=== PATIENT | male | born 1980 | race African-American/Black ===

== ENCOUNTER 2018-08-07 20:11 | Emergency (ER) | payer SELFPAY ==
[2018-08-07] MEDS ORDERED: NS 0.9% 1000 ML*IV.FLUID IV ONE (22:24)
[2018-08-07] MEDS ORDERED: Albuterol/Ipratropium NEB.SOL* Albuterol 2.5 MG/Ipratropium 0.5 MG 3 ML INH ONE (22:25)
[2018-08-07 22:50] LABS: ABS Basophils 0.1 10^3/ul (0-0.2); ABS Eosinophils 0.1 10^3/ul (0-0.6); ABS Lymphocytes 1.4 10^3/ul (1.0-4.8); ABS Monocytes 0.9 10^3/ul (0-0.8); ABS Neutrophils 7.6 10^3/ul (1.5-7.7); ABS Nucleated RBC 0 10^3/ul; Eosinophil % 1.3 %; Hematocrit 42 % (42-52); Hemoglobin 14.7 g/dl (14.0-18.0); Lymphocyte % 13.9 %; Mean Corpuscular HGB Conc 35 g/dl (31-36); Mean Corpuscular Hemoglobin 31 pg (27-31); Mean Corpuscular Volume 91 fL (80-94); Mean Platelet Volume 9.7 fL (7.4-10.4); Nucleated Red Blood Cells % 0; Platelet Count 147 10^3/ul (150-450); Red Blood Count 4.68 10^6/ul (4.00-5.40); Red Cell Distribution Width 13 % (10.5-15)
--- NOTE | 2018-08-07 22:55 | ED ---
HPI Febrile Illness - HPI Summary HPI Summary: 38-year-old male presents with fever for past week. He also admits to cough. He admits to headache, sore throat, weakness, nausea, vomiting, diarrhea, and abdominal pain. He states he is not able to take Tylenol and ibuprofen as causes allergic reaction. He states he feels dehydrated. He has a history of asthma but has not been using his inhaler. No chest pain. He admits occasional shortness of breath. No one else sick. he admits to worsening sinus pressure and congestion. - History of Current Complaint Chief Complaint: EDFluSymptoms Time Seen by Provider: 08/07/18 22:19 Pain Intensity: 10 - Allergy/Home Medications Allergies/Adverse Reactions: Allergies Allergy/AdvReac Type Severity Reaction Status Date / Time acetaminophen Allergy Difficulty Verified 08/07/18 22:53 Breathing/Wheezing aspirin Allergy Difficulty Verified 08/07/18 22:53 Breathing/Wheezing ibuprofen Allergy Unknown Verified 08/07/18 20:20 Reaction Details Penicillins Allergy Difficulty Verified 08/07/18 22:53 Breathing/Wheezing Home Medications: Home Medications NK [No Home Medications Reported] 08/07/18 [History Confirmed 08/07/18] PMH/Surg Hx/FS Hx/Imm Hx Endocrine/Hematology History: Denies: Hx Anticoagulant Therapy Respiratory History: Reports: Hx Asthma Infectious Disease History: No Infectious Disease History: Denies: Traveled Outside the [place] in Last 30 Days - Family History Known Family History: Negative: Cardiac Disease, Hypertension, Diabetes - Social History Alcohol Use: None Hx Substance Use: No Substance Use Type: Reports: None Hx Tobacco Use: Yes Smoking Status (MU): Heavy Every Day Tobacco Smoker Type: Cigarettes Review of Systems Positive: Fever Positive: Sore Throat, Nasal Discharge Negative: Chest Pain Positive: Shortness Of Breath, Cough Positive: Abdominal Pain, Vomiting, Diarrhea, Nausea All Other Systems Reviewed And Are Negative: Yes Physical Exam Triage Information Reviewed: Yes Vital Signs On Initial Exam: Initial Vitals Temp Pulse Resp BP Pulse Ox 102.1 F 102 20 116/80 96 08/07/18 20:11 08/07/18 20:11 08/07/18 20:11 08/07/18 20:11 08/07/18 20:11 Vital Signs Reviewed: Yes Appearance: Positive: Well-Appearing Skin: Positive: Warm, Dry Head/Face: Positive: Normal Head/Face Inspection Eyes: Positive: Normal, EOMI, ERIN, Conjunctiva Clear ENT: Positive: Normal ENT inspection, Pharyngeal erythema, TMs normal, Sinus tenderness, Uvula midline. Negative: Tonsillar swelling, Tonsillar exudate, Trismus, Muffled voice Neck: Positive: Supple, Nontender, No Lymphadenopathy Respiratory/Lung Sounds: Positive: Clear to Auscultation, Breath Sounds Present Cardiovascular: Positive: Normal, RRR Abdomen Description: Positive: Soft, Other: - mild diffuse abdominal tenderness Bowel Sounds: Positive: Present Musculoskeletal: Positive: Normal Neurological: Positive: Normal Psychiatric: Positive: Normal Diagnostics - Vital Signs Vital Signs Temp Pulse Resp BP Pulse Ox 08/07/18 22:24 96 08/07/18 20:11 102.1 F 102 20 116/80 96 - Laboratory Lab Results: Lab Results 08/07/18 Range/Units 22:42 WBC 10.0 (3.5-10.8) 10^3/ul RBC 4.68 (4.00-5.40) 10^6/ul Hgb 14.7 (14.0-18.0) g/dl Hct 42 (42-52) % MCV 91 (80-94) fL MCH 31 (27-31) pg MCHC 35 (31-36) g/dl RDW 13 (10.5-15) % Plt Count 147 L (150-450) 10^3/ul MPV 9.7 (7.4-10.4) fL Neut % (Auto) 75.4 % Lymph % (Auto) 13.9 % [place] % (Auto) 8.6 % Eos % (Auto) 1.3 % Baso % (Auto) 0.8 % Absolute Neuts (auto) 7.6 (1.5-7.7) 10^3/ul Absolute Lymphs (auto) 1.4 (1.0-4.8) 10^3/ul Absolute Monos (auto) 0.9 H (0-0.8) 10^3/ul Absolute Eos (auto) 0.1 (0-0.6) 10^3/ul Absolute Basos (auto) 0.1 (0-0.2) 10^3/ul Absolute Nucleated RBC 0 10^3/ul Nucleated RBC % 0 Result Diagrams: 08/07/18 22:42 12/12/18 22:42 Lab Statement: Any lab studies that have been ordered have been reviewed, and results considered in the medical decision making process. - Radiology chest Radiology Interpretation Completed By: ED Physician Summary of Radiographic Findings: nad Re-Evaluation - Re-Evaluation First Eval Re-Evaluation Time: 23:15 Change: Improved Comment: feeling better after fluids and treatment Course/Dx - Course Course Of Treatment: 38-year-old male presents with fever for past week. He also admits to cough. He admits to headache, sore throat, weakness, nausea, vomiting, diarrhea, and abdominal pain. He states he is not able to take Tylenol and ibuprofen as causes allergic reaction. He states he feels dehydrated. He has a history of asthma but has not been using his inhaler. No chest pain. He admits occasional shortness of breath. No one else sick. on exam lungs CTA. abd mild diffuse tenderness. pharynx erythematous. sinus tenderness present. wbc normal. chest xray normal. strept neg. will treat for sinusitis with doxcycline. patient understand and agrees with plan. - Febrile Illness Differential Diagnoses: Pneumonia, Viremia, Other: - sinusitis - Diagnoses Provider Diagnoses: Fever, Sinusitis, Upper respiratory infection Discharge - Sign-Out/Discharge Documenting (check all that apply): Patient Departure - Discharge Plan Condition: Good Disposition: HOME Patient Education Materials: Upper Respiratory Infection (ED) Referrals: [facility] [place] [facility] [Outside] Additional Instructions: take doxycycline twice a day for 7 days Drink fluids as tolerated establish care with primary Return to ED if develop any new or worsening symptoms - Billing Disposition and Condition Condition: GOOD Disposition: Home
[2018-08-07 23:08] LABS: EGFR Non-African American 70.8 (>60)
[2018-08-07] MEDS ORDERED: PROCHLORPERAZINE INJ 5 MG/ML 2 ML VIAL IV ONE (23:14)
[2018-08-07] MEDS ORDERED: DOXYcycline CAP(*) 100 MG PO ONE (23:39)
[2018-08-08 01:52] VITALS: BP 116/63
== END 2018-08-08 01:54 | disposition home or self-care (01) ==
LOC: ED 20:11
DX: R50.9 Fever, unspecified (principal); J32.9 Chronic sinusitis, unspecified; J06.9 Acute upper respiratory infection, unspecified; Z88.6 Allergy status to analgesic agent; Z88.0 Allergy status to penicillin; F17.210 Nicotine dependence, cigarettes, uncomplicated
CPT/HCPCS: 36415; 71046; 80053; 83605; 85025; 87040; 87651; 96361; 96374; 99282; A9270-GY; J0780

== ENCOUNTER 2019-04-06 20:38 | Emergency (ER) | payer SELFPAY ==
[2019-04-06] MEDS ORDERED: oxyCODONE TAB* 5 MG TAB PO ONE (22:26)
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
[2019-04-06 23:08] VITALS: BP 121/78
== END 2019-04-06 23:07 | disposition home or self-care (01) ==
LOC: ED 20:38
DX: M25.561 Pain in right knee (principal); T14.8XXA Other injury of unspecified body region, initial encounter; J45.909 Unspecified asthma, uncomplicated; F17.210 Nicotine dependence, cigarettes, uncomplicated; V19.9XXA Pedal cyclist (driver) (passenger) injured in unspecified traffic accident, initial encounter; Y93.55 Activity, bike riding; Y92.9 Unspecified place or not applicable; Z88.0 Allergy status to penicillin
CPT/HCPCS: 99282; A9270-GY